=== PATIENT | female | born 1995 | race African-American/Black ===

== ENCOUNTER 2017-09-20 00:14 | Emergency (ER) | payer BC, OTHER ==
[~2017-09-20] VITALS: Ht 167.6 cm; Wt 98.8 kg
[~2017-09-20 00:14] MED LIST: COLACE100 MG PO; FERROCITE324 MG PO; IBUPROFEN800 MG PO; PRENATAL TABLE1 EAC3 PO
[2017-09-20 00:50] LABS: HEMATOCRIT 37.8 % (36.0-46.0); HEMOGLOBIN 12.8 G/DL (11.9-15.5); MCH 29.6 PG (29.0-34.0); MCHC 33.9 G/DL (30.0-36.0); MCV 87.5 FL (83-99); PLATELET COUNT 199 K/uL (156-360); RBC DIS.WIDTH-CV 12.5 % (11.8-14.6); RBC DIS.WIDTH-SD 39.8 % (39-53); RED BLOOD COUNT 4.32 M/uL (3.80-5.20); WHITE BLOOD COUNT 5.5 K/uL (4.1-10.2)
[2017-09-20 00:59] LABS: ALBUMIN 3.8 g/dL (3.2-4.8); CHLORIDE 107 mEq/L (99-109); SODIUM 138 mEq/L (136-147)
[2017-09-20 01:01] LABS: GLUCOSE 97 mg/dL (70-99)
[2017-09-20 01:02] LABS: TOTAL PROTEIN 6.8 g/dL (6.4-8.3)
[2017-09-20 01:03] LABS: TOTAL BILIRUBIN 0.2 mg/dL (0.0-1.0)
[2017-09-20 01:05] LABS: ALKALINE PHOSPHATASE 84 IU/L (3-129); CREATININE 0.7 mg/dL (0.6-1.3); GFR ESTIMATE (CALCULATED) > 59 mL/min/
[2017-09-20 01:06] LABS: UREA NITROGEN (BUN) 12 mg/dL (9-23)
[2017-09-20 01:07] LABS: AST (GOT) 15 IU/L (2-34)
[2017-09-20 01:08] LABS: ALT (GPT) 10 IU/L (3-49)
[2017-09-20 01:09] LABS: LIPASE 22 U/L (1.0-51.0)
[2017-09-20] MEDS ORDERED: PEPCID20 MG PO (02:20)
[2017-09-20 02:21] LABS: TROP-I INTERPRETATION NEGATIVE; TROPONIN-I < 0.01 ng/mL (0.0-0.30)
[2017-09-20 02:35] VITALS: BP 113/66
== END 2017-09-20 02:44 | disposition home or self-care (01) ==
LOC: EME 00:14
PROVIDERS: Emergency Medicine
DX: R07.89 Other chest pain (principal); Z97.5 Presence of (intrauterine) contraceptive device; Z88.0 Allergy status to penicillin
CPT/HCPCS: 71046; 80053; 81003; 81025; 83690; 84484; 85027; 93005; 99281; 99284